=== PATIENT | male | born 1975 | race Two or more races ===

== ENCOUNTER 2018-02-18 18:03 | Emergency (ER) | payer MEDICARE, OTHER ==
[~2018-02-18] VITALS: Ht 177.8 cm; Wt 99.8 kg
--- NOTE | 2018-02-18 18:05 | NUR ---
AAOX3, BIB RA 39, SUDDEN ONSET OF DIZZINESS AND VOMITING ,ZOFRAN 4 MG IVP GIVEN. RR IS EVEN AND UNLABORED WITH NAD NOTED. SKIN IS WARM AND DRY. PLACED ON THE MONITOR. WILL CONTINUOUSLY MONITOR. THE PATIENT. AWAITING MD FOR EVAL.
--- NOTE | 2018-02-18 18:18 | NUR ---
DR DAVILA AT BS FOR EVAL.
[2018-02-18] MEDS ORDERED: ONDANSETRON HCL/PF 4 MG/2 ML VIAL ONE (18:19)
[2018-02-18] MEDS ORDERED: IV NS 0.9% 1,000 ML BAG IV ONE ×3 (18:30→20:00)
[2018-02-18] MEDS ORDERED: ONDANSETRON HCL/PF 4 MG/2 ML VIAL IVP ONE (18:30)
[2018-02-18] MEDS ORDERED: DIAZEPAM 10 MG TABLET PO ONE (19:00)
[2018-02-18] MEDS ORDERED: DIAZEPAM 10 MG TABLET ONE (19:04)
--- NOTE | 2018-02-18 19:15 | NUR ---
REPORT GIVEN TO BRIAN HOLLINGSWORTH FOR CHARISMA.
[2018-02-18 19:20] LABS: BASOPHILS % (AUTO) 0.5 % (0.0-2.0); HEMATOCRIT 43 % (39-51); HEMOGLOBIN 14.8 g/dL (13.5-17.5); LYMPHOCYTES # (AUTO) 1.3 /CMM (0.8-4.8); LYMPHOCYTES % (AUTO) 17.8 % (20.0-44.0); MEAN CORPUSCULAR HGB CONC 34 g/dl (31.0-36.0); MEAN CORPUSCULAR VOLUME 91 fL (80-96); MONOCYTES # (AUTO) 0.6 /CMM (0.1-1.30); MONOCYTES % (AUTO) 8.7 % (2.0-12.0); NEUTROPHILS # (AUTO) 5.1 /CMM (1.8-8.9); PLATELET COUNT (AUTO) 241 /CMM (150-450); RED BLOOD CELL COUNT(AUTO) 4.77 MIL/uL (4.5-6.0); WHITE BLOOD COUNT (AUTO) 7.2 K/uL (4.3-11.0)
[2018-02-18 19:29] LABS: CALCIUM, SERUM 8.1 mg/dL (8.5-10.1); CREATININE 1.4 mg/dL (0.6-1.3); POTASSIUM 3.3 mmol/L (3.5-5.1)
--- NOTE | 2018-02-18 19:48 | NUR ---
Called and paged on-call District Sales Coordinator, Dr. Deras.
[2018-02-18] MEDS ORDERED: POTASSIUM CHLORIDE 20 MEQ TAB.PRT.SR PO ONE ×2 (20:00→20:10)
[2018-02-18 22:52] VITALS: BP 122/78
== END 2018-02-18 22:53 | disposition home or self-care (01) ==
LOC: ER 18:03
DX: R42 Dizziness and giddiness (principal); R73.9 Hyperglycemia, unspecified; E87.6 Hypokalemia; I10 Essential (primary) hypertension; Z90.49 Acquired absence of other specified parts of digestive tract; Z60.2 Problems related to living alone
CPT/HCPCS: 36415; 70450; 71045; 80048; 82962; 83735; 84484; 85025; 85730; 93005; 96361; 96374; 99284; J2405; J7030 ×2